=== PATIENT | female | born 1965 | race Caucasian/White ===

== ENCOUNTER 2019-03-06 06:26 | Day surgery (SDC) | payer MEDICAID ==
[2019-03-06] MEDS ORDERED: Propofol 200 MG/20 ML SDV ONE (07:12)
[2019-03-06] MEDS ORDERED: Midazolam 1 MG/ML 2 ML SDV ONE (07:12)
[2019-03-06] MEDS ORDERED: fentaNYL 100 MCG/2 ML SDV ONE (07:12)
[2019-03-06] MEDS ORDERED: Dextrose 5%-Lactated Ringers 1,000 ML IV SCH (07:30)
[2019-03-06] MEDS ORDERED: Glycopyrrolate 0.2 MG/ML 2 ML SDV IVPUSH ONE (08:15)
[2019-03-06] MEDS ORDERED: Pantoprazole 40 MG Vial IVPUSH ONE (09:06)
--- NOTE | 2019-03-07 10:34 | OR ---
DATE OF PROCEDURE: 03/06/2019 PREOPERATIVE DIAGNOSIS: Recurrent gastroesophageal reflux symptoms, status post previous Suellen fundoplication. POSTOPERATIVE DIAGNOSES: 1. Loosening of the previous Suellen fundoplication with moderate inflammation of esophagogastric junction. 2. Mild antral gastritis. OPERATIVE PROCEDURE: Esophagogastroduodenoscopy with: 1. Biopsies of antrum for CLOtest. 2. Biopsies of esophagogastric junction for histologic evaluation. INDICATION FOR PROCEDURE: This is a 53-year-old female, status post previous Suellen fundoplication. For the last several months, she has had some increasing symptoms suggestive of reflux and is undergoing upper endoscopy for diagnostic purposes. Potential risks including bleeding and perforation were discussed, and the patient wishes to proceed. DETAILS OF PROCEDURE: The patient was taken to the operating room and placed in a left lateral decubitus position. IV sedation was administered, after which the upper GI endoscope was passed orally through the length of the esophagus and into the stomach with retroflexion view of the fundus, and thereafter through the pyloric channel and then into the proximal duodenum. Findings included normal hypopharynx, larynx, upper esophageal sphincter, and esophageal body. At the EG junction, there was some apparent loosening of the Suellen fundoplication. There was still fundoplication effect present. There was some slight upward extension of the gastroesophageal junction mucosal line and some mild to moderate inflammation at the EG junction. In the stomach, retroflexion showed even more clearly loosening of the fundoplication from that vantage point. Remainder of the stomach had some patchy antral gastritis. Duodenum to the junction of the third and fourth portions were unremarkable. At this point, biopsies were taken from the antrum and sent for CLOtest for H. pylori. Multiple biopsies were then obtained from esophagogastric junction, sent for histologic evaluation. Minimal bleeding from the biopsy sites was seen and the procedure was then concluded. The patient was taken to the recovery room in satisfactory condition. The patient presently is on omeprazole and we will start her on Protonix 40 mg a day as well as giving her IV dose in the recovery room. We will see her back in about 2 weeks and see how she is doing with the medical management, and surgery could be considered if over time medical management appears to be unsatisfactory. Raji Knox MD /[id number]
== END 2019-03-06 10:26 | disposition home or self-care (01) ==
LOC: JP.SDS 06:26
PROVIDERS: ATTEND Surgery
DX: K21.0 Gastro-esophageal reflux disease with esophagitis (principal); K22.70 Barrett's esophagus without dysplasia; K29.70 Gastritis, unspecified, without bleeding; K91.89 Other postprocedural complications and disorders of digestive system; Z91.09 Other allergy status, other than to drugs and biological substances; Z79.899 Other long term (current) drug therapy; Z98.890 Other specified postprocedural states
CPT/HCPCS: 87081; C9113; J2250; J2704; J3010; J3490; J7042

== ENCOUNTER 2019-04-02 07:55 | Inpatient (IN) | payer MEDICAID ==
[2019-04-02] MEDS ORDERED: Ondansetron 4 MG/2 ML SDV ONE (08:02)
[2019-04-02] MEDS ORDERED: Succinylcholine 200 MG/10 ML MDV ONE (08:02)
[2019-04-02] MEDS ORDERED: Dexamethasone 4 MG/ML SDV ONE (08:02)
[2019-04-02] MEDS ORDERED: Rocuronium 50 MG/5 ML Vial ONE (08:02)
[2019-04-02] MEDS ORDERED: Propofol 200 MG/20 ML SDV ONE (08:02)
[2019-04-02] MEDS ORDERED: Glycopyrrolate 0.2 MG/ML 5 ML MDV ONE (08:02)
[2019-04-02] MEDS ORDERED: Neostigmine Methylsulfate 1 MG/ML 5 ML Syringe ONE (08:02)
[2019-04-02] MEDS ORDERED: fentaNYL 250 MCG/5 ML SDV ONE ×2 (08:04→10:22)
[2019-04-02] MEDS ORDERED: Acetaminophen 500 MG Tab PO ONE (08:12)
[2019-04-02] MEDS ORDERED: Scopolamine 1.5 MG Transdermal Patch TOP ONE (08:12)
[2019-04-02] MEDS: Dextrose 5%-Lactated Ringers 1,000 ML IV SCH ×3 (08:23→19:10)
[2019-04-02] MEDS ORDERED: cefOXitin 2 GM in Sodium Chloride 0.9% 50 ML IV ONE (09:45)
[2019-04-02] MEDS ORDERED: Ketamine 500 MG/5 ML MDV IV SCH (09:45)
[2019-04-02] MEDS ORDERED: Ketamine 50 MG in Sodium Chloride 0.9% 49.5 ML IV SCH (09:45)
[2019-04-02] MEDS ORDERED: Ropivacaine 36 ML, dexAMETHasone 8 MG, EPINEPHrine 0.4 MG, Sodium Chloride 0.9% 41.6 ML NERVRT SCH ×4 (09:45)
[2019-04-02] MEDS ORDERED: hydrOXYzine HCl 100 MG/2 ML SDV IM ONE (11:23)
[2019-04-02] MEDS ORDERED: Ondansetron 4 MG/2 ML SDV IVPUSH PRN (13:00)
[2019-04-02] MEDS ORDERED: hydrOXYzine HCl 100 MG/2 ML SDV IM PRN (13:00)
[2019-04-02] MEDS ORDERED: HYDROmorphone 0.5 MG/0.5 ML Syringe IVPUSH PRN (13:00)
[2019-04-02] MEDS ORDERED: HYDROmorphone 1 MG/ML Syringe IV PRN (13:00)
[2019-04-02] MEDS: cefOXitin 2 GM in Sodium Chloride 0.9% 50 ML IV SCH ×2 (15:26→21:37)
[2019-04-02] MEDS: Metoclopramide 10 MG/2 ML SDV IVPUSH SCH ×2 (15:38→21:38)
[2019-04-02] MEDS ORDERED: Pantoprazole 40 MG Vial IVPUSH SCH (16:00)
[2019-04-02] MEDS: traZODone 50 MG Tab PO SCH (21:37)
[2019-04-03] MEDS: Dextrose 5%-Lactated Ringers 1,000 ML IV SCH ×3 (02:36→21:00)
[2019-04-03] MEDS: Metoclopramide 10 MG/2 ML SDV IVPUSH SCH ×4 (03:53→21:51)
[2019-04-03] MEDS: cefOXitin 2 GM in Sodium Chloride 0.9% 50 ML IV SCH (03:54)
[2019-04-03] MEDS ORDERED: Iopamidol 612 MG/ML 100 ML Bottle IV SCH (04:00)
--- NOTE | 2019-04-03 04:46 | CRLCR ---
Indication: Paraesophageal hernia repair Technique: KUB 2 view Comparison: None Findings/Impression: : Two views of the abdomen were obtained after administration of oral contrast. Oral contrast material is seen within the stomach and small bowel. Suture material seen near the gastroesophageal junction. No extravasated contrast material identified. Nonspecific bowel gas pattern. Dictated by Maggy Lozada MD @ Apr 03 2019 4:45AM Signed by Dr. Maggy Lozada @ Apr 03 2019 4:45AM
[2019-04-03] MEDS ORDERED: Acetaminophen 325 MG Tab PO PRN (07:33)
[2019-04-03] MEDS: HYDROmorphone 2 MG Tab PO PRN ×2 (09:02→19:41)
--- NOTE | 2019-04-03 13:07 | PN ---
DATE OF SERVICE: 04/03/2019 The patient has been afebrile with stable vital signs. Tolerating liquids satisfactorily overnight. We will go up to a full-liquid today. As I have decided, with the patient her oral pain medications. She may be ready for discharge home tomorrow. Raji Knox MD /[id number]
[2019-04-03] MEDS ORDERED: Pantoprazole 40 MG Delayed-Release Granules 1 Packet PO SCH (16:30)
[2019-04-04] MEDS: traZODone 50 MG Tab PO SCH (02:45)
[2019-04-04] MEDS: Metoclopramide 10 MG/2 ML SDV IVPUSH SCH ×2 (04:36→09:02)
--- NOTE | 2019-04-04 08:58 | DISCH ---
ADMISSION DIAGNOSES: 1. Recurrent paraesophageal diaphragmatic hernia. 2. Status post Suellen fundoplication. 3. Attention deficit disorder. 4. History of basal cell carcinoma. 5. Anxiety. DISCHARGE DIAGNOSIS: Diagnostic laparoscopy with repair of paraesophageal diaphragmatic hernia with mesh and reconstruction of Suellen fundoplication and excision of mediastinal lipoma for recurrent paraesophageal diaphragmatic hernia with disruption of fundoplication and small mediastinal lipoma. Date of surgery: 04/02/2019. Surgeon: Raji Knox MD. HISTORY: Silva Jacobs is a 53-year-old female with recurrence of heartburn, midepigastric abdominal pain. After preoperative evaluation and discussion of possible risks and possible complications, she wished to proceed with surgical procedure. HOSPITAL COURSE: Silva had her surgery on 04/02/2019. She had no operative complications. On postoperative day #1, she was started on a full liquid diet. Her pain was well managed. She was changed to oral pain medication. Her activity was good. Vital signs stable and she was able to be discharged to home on postoperative day #1. PHYSICAL EXAMINATION: GENERAL: Silva Jacobs is a pleasant 53-year-old female. VITAL SIGNS: Height is 5 feet 8.11 inches, weight is 156 pounds, BMI is 23. TPR is 96.7, 58, 18, blood pressure 132/69. HEENT: Negative. NECK: Supple. HEART: Regular rate and rhythm. LUNGS: Clear. ABDOMEN: Sutures intact and trocar sites healing well. Abdominal binder is on. EXTREMITIES: Without peripheral edema. DISPOSITION: Discharged to home. CONDITION: Stable and improving. FOLLOWUP: With Molly Hidalgo PA-C, on 04/12/2019 at 10 a.m. HOME MEDICATIONS: 1. Dilaudid 2 mg one q.6 hours p.r.n. pain, #28. 2. Tylenol 650 mg oral q.6 hours p.r.n. lesser pain. 3. She is to resume her home medication, trazodone 150 mg at bedtime. DIET: Full liquid diet for 2 weeks. ACTIVITY: No lifting over 10 pounds for 2 weeks. Other activity: Walk at least 6 times daily, distance and time as tolerated. Driving: Do not drive for 1 week and then as tolerated. Shower/bathing: May shower. DISCHARGE INSTRUCTIONS: Notify provider if any fever, increased pain, nausea, or vomiting. Keep site clean and dry. Wear abdominal binder for 2 weeks and then as tolerated. Use incentive spirometer 10 times every hour while awake.
--- NOTE | 2019-04-04 13:34 | OR ---
DATE OF PROCEDURE: 04/02/2019 PREOPERATIVE DIAGNOSIS: Recurrent gastroesophageal reflux disease secondary to loosening of Suellen fundoplication. POSTOPERATIVE DIAGNOSES: 1. Recurrent gastroesophageal reflux disease secondary to loosening of Suellen fundoplication. 2. Small mediastinal lipoma. OPERATIVE PROCEDURES: Diagnostic laparoscopy with: 1. Repair of paraesophageal diaphragmatic hernia with mesh and reconstruction of Suellen fundoplication (79338). 2. Excision of mediastinal lipoma (15036). ANESTHESIA: General. IT ARCHITECT: Molly Hidalgo PA-C. INDICATIONS FOR PROCEDURE: This is a 53-year-old status post Suellen fundoplication several years ago, presenting with recurrent symptoms. On upper endoscopy, she was noted to have developed quite a bit of laxity of the Suellen fundoplication, grossly appeared to be to a large extent intact, but has loosened quite a bit and associated with some widening of the hiatus, indicating probably some recurrence of the diaphragmatic hernia. The plan is to proceed with a diagnostic laparoscopy, reconstruction of the Suellen fundoplication, and closure of any hernia that might be identified. Potential risks including bleeding, infection, injury to the viscera, possibility that the redo fundoplication may end up being either too tight, resulting in significant dysphasia, or too loose, resulting in some persistent reflux disease, were all gone over, and the patient wishes to proceed. DETAILS OF PROCEDURE: The patient was taken to the operating room and placed in a supine position. After general endotracheal anesthesia was induced, she was converted to a lithotomy position. The abdomen was prepped and draped. At 15 cm inferior and 5 cm left of the xiphoid process, a transverse incision was made, and the peritoneal cavity entered under direct vision with an Optiview trocar. The peritoneal cavity was inflated to 15 mmHg pressure with CO2. Laparoscope was reinserted and no underlying trocar insertion site injuries were seen. Following this, 5 additional trocars were placed across the upper and midabdomen, and the upper abdomen was examined. Some adhesions between the liver and the previous fundoplication were taken down with Harmonic scalpel. This allowed identification of the current status of fundoplication. There was recurrence of a paraesophageal component of the hiatal hernia with prolapse of some perigastric fat and a portion of the fundus in the plane lateral to the esophagus. This was reduced, and the dissection behind the esophagus was then established, and the diaphragmatic hernia was then closed from that plane with 0 Ethibond sutures reinforced with PTFE pledgets. Some Phasix ST mesh was then placed into that location as well and fixed there with some absorbable tacking screws. Once this diaphragmatic hernia was dissected out, the patient had been noted to have a small mediastinal lipoma, which was excised to facilitate a more adequate closure of the diaphragmatic hernia. Once the overall area of the fundoplication had been brought back down fully into the abdomen, it was noted that the portion of stomach brought anteriorly over to the portion of the fundus in the retroesophageal area had more or less fallen away. A guidewire was passed per Anesthesia orally into the stomach, and over that, a 54-Japanese Savary dilator was positioned. Three additional sutures between the anterior aspect of the fundus to the portion passing posteriorly, were then placed using 0 Ethibond sutures, reinforced with PTFE pledgets. One additional stitch between the left side of the fundoplication and the overlying diaphragm was also placed with the same stitch-pledget combination. At that point, things appeared to be satisfactorily reconstructed. The guidewire and dilator were removed, and the area was judged to be satisfactorily floppy. Trocars were then sequentially removed and the peritoneal cavity deflated. Incisions were closed with 4-0 Vicryl stitch. The patient, near the onset of the procedure, after initial trocar placement, had bilateral subcostal transversus abdominis plane blocks placed. At the end of the procedure, the skin was closed with some 4-0 Vicryl stitch and dressing applied. The patient was taken to the recovery room in a satisfactory condition. Physician [employer] hut assistant, oMlly Hidalgo, played an essential role in assisting in this case, helping to position the patient, retract structures as needed, as well as suturing and cutting sutures when indicated. Her presence improved patient safety and decreased the operative time. Raji Knox MD /[id number]
== END 2019-04-04 11:10 | disposition home or self-care (01) | DRG 220 ==
LOC: JP.SDSSCHI 07:55 → JP.SDS 07:56 → EDSTATUS 09:00 → JP.MS 12:00
PROVIDERS: ADMIT Surgery; ATTEND Surgery
PROC: 0DV44ZZ Restriction of Esophagogastric Junction, Percutaneous Endoscopic Approach (ICD-10-PCS; principal; 2019-04-02)
PROC: 0BQT4ZZ Repair Diaphragm, Percutaneous Endoscopic Approach (ICD-10-PCS; 2019-04-02)
PROC: 0BUT4JZ Supplement Diaphragm with Synthetic Substitute, Percutaneous Endoscopic Approach (ICD-10-PCS; 2019-04-02)
PROC: 0WBC4ZX Excision of Mediastinum, Percutaneous Endoscopic Approach, Diagnostic (ICD-10-PCS; 2019-04-02)
DX: K21.9 Gastro-esophageal reflux disease without esophagitis (principal); D17.4 Benign lipomatous neoplasm of intrathoracic organs; K44.9 Diaphragmatic hernia without obstruction or gangrene; F98.8 Other specified behavioral and emotional disorders with onset usually occurring in childhood and adolescence; Z85.828 Personal history of other malignant neoplasm of skin; F41.9 Anxiety disorder, unspecified; Z88.1 Allergy status to other antibiotic agents; Z88.2 Allergy status to sulfonamides
CPT/HCPCS: 74240; 94762; A9270-GY; C1781; C9113; J0171; J0330; J0694; J1100; J1170; J2405; J2704; J2710; J2765; J2795; J3010; J3410; J3490; J7042; J7050; Q9967